=== PATIENT | male | born 1985 | race Caucasian/White ===

== ENCOUNTER 2025-03-27 15:18 | Emergency (ER) | payer OTHER ==
[2025-03-27 15:34] VITALS: BP 136/86; PULSE 73; RESP 20; TEMP 98.1; BMI 25.4
== END 2025-03-27 15:41 | disposition home or self-care (01) ==
LOC: JERFT 15:18
DX: Z48.02 Encounter for removal of sutures (principal)
CPT/HCPCS: 99281-25